=== PATIENT | male | born 1970 | race Caucasian/White ===

== ENCOUNTER 2018-01-13 14:54 | Inpatient (IN) | payer OTHER, SELFPAY ==
[~2018-01-13 14:54] MED LIST: Glycopyrrolate 0.2 MG/ML 5 ML SYRINGE ONE; Ketorolac Tromethamine 30 MG/ML VIAL ONE; Lidocaine 1% PF 5 ML VIAL ONE; Ondansetron HCl/PF 4 MG/2 ML Vial ONE; Propofol 200 MG/20 ML VIAL ONE
[2018-01-13] MEDS ORDERED: Ketorolac Tromethamine 30 MG/ML VIAL ONE (15:24)
--- NOTE | 2018-01-13 16:09 | RAD ---
RIGHT KNEE FOUR VIEWS: History: Fall. Right knee injury. FINDINGS: Joint spaces are preserved. No acute fracture, dislocation, or fluid distention in the joint capsule are apparent. IMPRESSION: No acute osseous abnormalities are demonstrated. POS: [facility]
--- NOTE | 2018-01-13 16:10 | RAD ---
RIGHT HIP TWO VIEWS: History: Fall, right leg injury. FINDINGS: Comminuted oblique fracture of the right femoral neck is present with mild impaction and varus angula tion. Small linear avulsion fragment lies just inferior to the femoral head. There are mild degenerat jagruti changes of the right hip. Remainder of the femur is intact. IMPRESSION: Right hip fracture. POS: [facility]
--- NOTE | 2018-01-13 16:12 | RAD ---
RIGHT HIP TWO VIEWS: History: Fall. Right hip injury. FINDINGS: Comminuted impacted fracture of the right femoral neck is present with mild varus angulation. Small l inear ossific fragment lies just inferior to the femoral head. There are mild degenerative changes of the right hip. IMPRESSION: Right hip fracture. POS: [facility]
--- NOTE | 2018-01-13 16:13 | RAD ---
AP PELVIS ONE VIEW: History: Fall. Pelvic injury. FINDINGS: Impacted angulated right femoral neck fracture is apparent. There are mild osteoarthritic changes of each hip. Sacral ala and pelvic rings are intact. Phleboliths overlie the pelvis. IMPRESSION: Right hip fracture. POS: [facility]
--- NOTE | 2018-01-13 16:13 | RAD ---
LUMBAR SPINE THREE VIEWS: History: Fall. Back injury. FINDINGS: There are five lumbar type vertebrae. Pedicles are intact. Vertebral body height and alignment are ma intained. There is osteophytosis throughout the lower facets. Overall densities over the right upper quadrant have the appearance of bowel content. IMPRESSION: No acute osseous abnormalities of the lumbar spine are demonstrated. POS: [facility]
[2018-01-13] MEDS ORDERED: Dextrose 5% in Water 1,000 ML IV PRN (18:29)
[2018-01-13] MEDS ORDERED: Dextrose 50% Abboject 50 ML SYRINGE SLOW IVP PRN (18:29)
[2018-01-13] MEDS ORDERED: Ondansetron ODT 4 MG TAB PO PRN (18:29)
[2018-01-13 18:37] LABS: #Basophils 0.1 thou/uL (0.0-0.2); #Eosinphils 0.2 thou/uL (0.0-0.7); #Lymphocytes 2.1 thou/uL (1.20-3.40); #Neutrophils 13.2 thou/uL (1.40-6.50); %Basophils 0.4 % (0.0-1.0); %Eosinophils 0.9 % (0.0-10.0); %Lymphocytes 12.8 % (21.0-51.0); %Monocytes 6.1 % (0.0-10.0); %Neutrophils 79.9 % (42.0-75.0); Hemoglobin 15.7 g/dL (14.0-18.0); Mean Corpuscular HGB CONC 34.3 g/dL (32.0-36.0); Mean Corpuscular Hemoglobin 32.2 pg (27.0-31.0); Mean Corpuscular Volume 93.9 fl (80.0-94.0); Mean Platelet Volume 6.4 fL (7.4-10.4); Platelet Count 196 thou/uL (130-400); RBC Distribution Width 11.3 % (11.5-14.5); Red Blood Cell (RBC) Count 4.88 mill/uL (4.70-6.10); White Blood Cell (WBC) Count 16.5 thou/uL (4.8-10.8)
[2018-01-13 18:59] LABS: ALT (SGPT) 25 U/L (8-55); AST (SGOT) 25 U/L (5-34); Albumin 4.1 g/dL (3.5-5.0); Alkaline Phosphatase 94 U/L (40-150); Anion Gap 13 mmol/L (10-20); BUN (Urea Nitrogen) 11 mg/dL (8.9-20.6); Bilirubin, Total 0.4 mg/dL (0.2-1.2); Calc. Creatinine Clearance 0 mL/min (70-130); Calcium 9.2 mg/dL (7.8-10.44); Carbon Dioxide 24 mmol/L (22-29); Chloride 107 mmol/L (98-107); Estimated GFR-MDRD 78; Globulin 2.8 g/dL (2.4-3.5); Glucose 97 mg/dL (70-105); Potassium 3.9 mmol/L (3.5-5.1); Protein, Total 6.9 g/dL (6.0-8.3); Sodium 140 mmol/L (136-145)
--- NOTE | 2018-01-13 19:41 | HP ---
DATE OF ADMISSION: 01/13/2018 ADMITTING PHYSICIAN: Dr. Fernando. CONSULTING PHYSICIAN: Dr. Jaden Varghese. CHIEF COMPLAINT: Evaluation of right hip pain status post fall from height of 4 feet. 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 He denies hitting his head. He denies loss of consciousness. He d oes report that after he landed, part of the lift struck him on the lower back. He denies any other injury. He denies headache, chest pain, shortness of breath, dizziness, neck pain, abdominal pain or any other pain. The pain in his right hip is 4/10, but 10/10 with movement. The pain is constant a nd relieved by nothing. It does not radiate. He describes the pain as dull and aching. PAST MEDICAL HISTORY: The patient reports past medical history of gastroesophageal reflux disease. He also reports a history of esophageal dysmotility, possibly achalasia. PAST SURGICAL HISTORY: The patient reports having an anal fissure repair at [facility] 2 years a go. He has also had an upper endoscopy approximately 3 years ago with an ablation. The patient also reports having a tonsillectomy with a sinus reconstruction 6 to 7 years ago. ALLERGIES: The patient reports one episode of reaction to CODEINE (itching). FAMILY HISTORY: Mother has diabetes mellitus. Father has history significant for hyperthyroidism an d hyperlipidemia. SOCIAL HISTORY: The patient dips 1 can of snuff a week for 30 years. The patient does not smoke. P atient seldom drinks alcohol, approximately one beer per month. The patient does not do other drugs. REVIEW OF SYSTEMS: Ten-point review of systems is negative except as otherwise stated in the HPI. PHYSICAL EXAMINATION: VITAL SIGNS: BP 136/77, pulse 90, respirations 16, O2 sat 95% on room air. GENERAL: Adult male who appears his stated age in no acute distress. HEENT: Head is normocephalic and atraumatic. Ears atraumatic. Nose: Nares patent, no blood. Mout h, his oropharynx is pink and moist. His dentition is fully intact. His Mallampati score is 4. NECK: Supple, with no tenderness or tracheal deviation. RESPIRATORY: His lungs are clear to auscultation bilaterally with normal effort. CARDIOVASCULAR: He has a regular rate and rhythm, normal S1 and S2. No murmurs, gallops or rubs. Distal pulses are 2+ bilaterally and radial pulses also 2+ bilaterally. ABDOMEN: Soft, nontender, nondistended. He has somewhat hypoactive bowel sounds. No masses. EXTREMITIES: He is neurovascularly intact x4. His right leg is shortened and externally rotated. H e has no ecchymosis in his skin, full intact. NEUROLOGIC: His Josh coma score is 15. He is alert and oriented x4. His cranial nerves II-XII a re fully intact. He has no focal deficits. PSYCHIATRIC: His mood and affect are normal. LABORATORY DATA: Chemistry: Sodium 140, potassium 3.9, chloride 107, bicarbonate 24, BUN 11, creati nine 1.03, glucose 97. Hematology: WBC 16.5, hemoglobin 15.7, hematocrit 45.8, platelets 196. RADIOGRAPHIC FINDINGS: Pelvis x-ray. Impression: Right hip fracture. Lumbar spine 2 or 3 view. I mpression: No acute osseous abnormalities of the lumbar spine are demonstrated. Right hip 2 or 3 vi ew, impression, right hip fracture. Right femur, 2-view, impression, right hip fracture. Right knee , 4-view, impression, no acute osseous abnormalities are demonstrated. ASSESSMENT AND PLAN: 1. Status post fall from height. 2. Comminuted right femoral neck fracture. 3. Acute traumatic pain. PLAN: 1. The plan will be for ortho surgery [facility] to the risk of avasc ular necrosis with this type of injury. The patient has been n.p.o. since approximately noon today. 2. We will optimize his pain control and order PT and OT evaluations postop. This patient was discussed with Dr. Fernando who is deputy coroner [facility], who agrees with this assessment a nd plan.
[2018-01-13] MEDS ORDERED: CEFAZOLIN/Water 2 GM/20 ML SYRINGE SLOW IVP SCH (20:15)
--- NOTE | 2018-01-13 21:07 | CON ---
DATE OF CONSULTATION: 01/13/2018 CHIEF COMPLAINT: Right hip pain. HISTORY OF PRESENT ILLNESS: Mr. Miller is a 47-year-old male who fell 4 feet from a skid concrete bucket [employer] [facility]. He landed on his right side on a concrete floor. He had immediate pain in the hip. He was unable to ambulate. He was taken to the emergency department by EMS. He has been found to have a displaced right femoral neck fracture. Orthopedics was consulted. The patient has been given morp haris, but does complain of pain in the hip. He feels that he is unable to move the leg whatsoever. His family is at the bedside. No previous fractures. He has been healthy recently. 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 PAST MEDICAL HISTORY: The patient denies any active medical problems. PAST SURGICAL HISTORY: Adenoidectomy, previous colonoscopy and EGD. He has had a previous sinus nena sergio as well. ALLERGIES: No known drug allergies. MEDICATIONS: No active medications. SOCIAL HISTORY: The patient drinks occasional alcohol, no smoking, no drug use. FAMILY MEDICAL HISTORY: Noncontributory. PHYSICAL EXAMINATION: VITAL SIGNS: Stable. He is afebrile. He is normotensive and 90% on room air. GENERAL: He is alert, lying supine in no apparent distress. HEENT: Normocephalic, atraumatic. RESPIRATORY: Breathing comfortably. ABDOMEN: Soft, nontender, nondistended. MUSCULOSKELETAL: The patient's right leg has shortened and externally rotated posture. He has palpa ble dorsalis pedis pulse. Sensation is intact in the dorsal and plantar aspect of the foot. He is a ble to wiggle the toes. He has 2 second capillary refill. IMAGES: X-rays demonstrate a displaced right femoral neck fracture which is basically cervical. The re is no significant extension distally. There is an effusion. IMPRESSION: Displaced right femoral neck fracture in a 47-year-old male. PLAN: At this point, the patient will need operative intervention. I will take him to the operating room for open reduction and fixation of his femoral neck fracture. Our goal is anatomic reduction a nd urgent fixation to hopefully restore blood flow into the femoral head and prevent complications mathias ch as nonunion or avascular necrosis. I have reviewed these with him. It is possible that he would need a total hip arthroplasty in the future if he did not fully improved. He is aware of risks and w ants to proceed. Goal of surgery will be early mobilization as well as pain relief also. He will green ve preoperative antibiotics. He will have pain control and deep venous thrombosis prophylaxis as sammy hermosillo.
[2018-01-13 21:10] VITALS: BMI 28.3
[2018-01-13] MEDS ORDERED: Midazolam HCl 2 mg/2 ml Vial ONE (22:41)
[2018-01-13] MEDS ORDERED: Fentanyl 100 MCG/2 ML VIAL ONE ×2 (22:41)
[2018-01-13] MEDS ORDERED: Ondansetron HCl/PF 4 MG/2 ML Vial IV PRN (22:50)
[2018-01-13] MEDS ORDERED: Milk Of Magnesia 30 ML UDCUP PO PRN (22:50)
[2018-01-13] MEDS ORDERED: traMADol HCl 50 MG TAB PO PRN (22:50)
[2018-01-13] MEDS ORDERED: HYDROcodone/Acetaminophen 10/325 mg Tablet PO PRN (22:50)
[2018-01-13] MEDS ORDERED: Fentanyl 100 MCG/2 ML VIAL SLOW IVP PRN (22:50)
[2018-01-13] MEDS ORDERED: Communication Order-Pharmacy FS SCH (23:00)
[2018-01-13] MEDS ORDERED: HYDROmorphone 0.5 MG/0.5 ML SYRINGE ONE (23:51)
[2018-01-13] MEDS ORDERED: Ketorolac Tromethamine 30 MG/ML VIAL IVP SCH (23:59)
[2018-01-14] MEDS ORDERED: Fentanyl 100 MCG/2 ML VIAL ONE (00:02)
[2018-01-14] MEDS ORDERED: HYDROmorphone 0.5 MG/0.5 ML SYRINGE ONE (00:44)
[2018-01-14] MEDS ORDERED: Ondansetron HCl/PF 4 MG/2 ML Vial IVP PRN (00:46)
[2018-01-14] MEDS ORDERED: HYDROmorphone 2 MG/ML VIAL SLOW IVP PRN (00:46)
[2018-01-14] MEDS ORDERED: Promethazine HCl 25 MG/ML VIAL SLOW IVP PRN (00:46)
[2018-01-14] MEDS ORDERED: Promethazine HCl 25 MG/ML VIAL IM PRN (00:46)
--- NOTE | 2018-01-14 01:27 | OP ---
DATE OF PROCEDURE: 01/13/2018 PROCEDURE: Open reduction internal fixation of right femoral neck fracture. PREOPERATIVE DIAGNOSIS: Displaced right femoral neck fracture. POSTOPERATIVE DIAGNOSIS: Displaced right femoral neck fracture. COMPLICATIONS: None. ESTIMATED BLOOD LOSS: 100 mL. SURGEON: Jaden Varghese M.D. ANESTHESIA: General. IMPLANTS: 1. A [employer] dynamic hip screw size 85 mm with 4-hole plate. 2. A 7.3 mm cannulated screws from [employer]. INDICATIONS: Mr. Miller is a 47-year-old male who fell today. He sustained a fracture of the right femoral neck which was displaced. He was indicated for reduction of the femoral neck fracture in e operating room with fixation to restore anatomic alignment and promote healing. Risks have been re viewed and did include avascular necrosis, nonunion, malunion and others. DESCRIPTION OF PROCEDURE: Mr. Miller was identified in the preoperative holding area. His correct extremity was marked. He was carried to the operating room. He was positioned supine. General anes thesia was induced. A multidisciplinary timeout was performed. The right lower extremity was preppe d and draped in sterile fashion. We began the procedure with longitudinal traction on the limb using the fracture table. We rotated t he foot and pulled traction until we had an anatomic reduction of the femoral neck. Once this was ac complished, we prepped and draped the right lower extremity. We then made an incision over the later al thigh. We dissected down through the subcutaneous tissues to the fascia, which was incised. At t his point, we inserted a guidewire into the center position of the femoral head in the superior aspec t. This was used as a derotational wire. We then placed our second guidewire for DHS in a similar c entered position. At this point, we over drilled our superior guidewire and placed a 7.3 mm cannulat ed screw, which was 70 mm in length. We then overdrilled our DHS wire with our triple reamer. We pl aced an 85 mm screw and a 4-hole side plate. Four screws were placed laterally, affixing the plate t o the bone. We took final x-ray images confirming hardware position. There were no complications. At this point, we continued on with irrigation of the wound and then closed with #1 Vicryl suture, 2- 0 Vicryl suture and lyla were used. A sterile dressing was applied. The patient was taken to the recovery room in good condition.
[2018-01-14] MEDS ORDERED: Famotidine/PF 20 mg/2ml Vial SLOW IVP SCH (02:15)
[2018-01-14] MEDS: Ketorolac Tromethamine 30 MG/ML VIAL IVP SCH ×3 (04:35→14:24)
[2018-01-14] MEDS: CEFAZOLIN/Water 2 GM/20 ML SYRINGE SLOW IVP SCH ×2 (04:45→12:21)
[2018-01-14 04:56] LABS: #Eosinphils 0.1 thou/uL (0.0-0.7); #Monocytes 1.3 thou/uL (0.11-0.59); #Neutrophils 12.6 thou/uL (1.40-6.50); %Basophils 0.1 % (0.0-1.0); %Eosinophils 0.5 % (0.0-10.0); %Lymphocytes 12.7 % (21.0-51.0); %Monocytes 8.3 % (0.0-10.0); %Neutrophils 78.4 % (42.0-75.0); Hemoglobin 14.5 g/dL (14.0-18.0); Mean Corpuscular HGB CONC 34.4 g/dL (32.0-36.0); Mean Corpuscular Hemoglobin 32.8 pg (27.0-31.0); Mean Corpuscular Volume 95.2 fl (80.0-94.0); Mean Platelet Volume 6.9 fL (7.4-10.4); Platelet Count 197 thou/uL (130-400); RBC Distribution Width 11.3 % (11.5-14.5); Red Blood Cell (RBC) Count 4.44 mill/uL (4.70-6.10)
[2018-01-14 05:10] LABS: Anion Gap 12 mmol/L (10-20); BUN (Urea Nitrogen) 14 mg/dL (8.9-20.6); Calc. Creatinine Clearance 100 mL/min (70-130); Calcium 8.9 mg/dL (7.8-10.44); Carbon Dioxide 27 mmol/L (22-29); Chloride 106 mmol/L (98-107); Estimated GFR-MDRD 79; Glucose 111 mg/dL (70-105); Potassium 4.1 mmol/L (3.5-5.1); Sodium 141 mmol/L (136-145)
--- NOTE | 2018-01-14 08:03 | RAD ---
INTRAOPERATIVE FLUOROSCOPY: HISTORY: Right hip fracture. COMPARISON: 01/13/18. FINDINGS: Intraprocedural fluoroscopy provided for Dr. Varghese. Two fluorosocpic images demonstrate a gamma nail as well as a single screw traversing the previously described fracture. Lucency is still presen t. Alignment is near-anatomic. IMPRESSION: Fluoroscopy as above. POS: [facility]
[2018-01-14] MEDS ORDERED: Acetaminophen 500 MG TAB PO PRN (09:04)
[2018-01-14] MEDS: traMADol HCl 50 MG TAB PO SCH ×3 (12:19→21:38)
[2018-01-14] MEDS: Acetaminophen 500 MG TAB PO SCH ×3 (12:20→21:39)
--- NOTE | 2018-01-14 14:05 | PRG ---
DATE OF SERVICE: 01/14/2018 ATTENDING PHYSICIAN: Dr. Remi Frost SUBJECTIVE: The patient is a 47-year-old male who sustained a 4-5 foot fall yesterday and presented to the ER here at [facility]. He was taken to the OR last night by Dr. Jaden Varghese for o pen reduction internal fixation of a right femoral neck fracture. On exam this morning, he voices no complaints, says his pain is well controlled and is anxious to get out of bed and start ambulating. OBJECTIVE: VITAL SIGNS: BP 113/73, pulse 94, temperature 99.2, respirations 18, O2 sat 92% on 1 liter nasal can nula. GENERAL: Adult male, appears his stated age, in no acute distress. HEENT: Normocephalic, atraumatic. LUNGS: His lungs are clear to auscultation bilaterally with normal effort. CARDIOVASCULAR: He has a regular rate and rhythm, normal S1 and S2. Distal pulses are 2+ bilaterall y. ABDOMEN: Soft, flat and nontender, nondistended. Normal bowel sounds. EXTREMITIES: He is neurovascularly intact x4. He has no dependent edema. His right leg over the mathias rgical site is dressed. The dressing appears clean and dry. NEUROLOGICAL: His GCS is 15 this morning. He has no focal deficits. LABORATORY DATA: He has no significant laboratory findings this morning. RADIOGRAPHIC FINDINGS: He has no images to review today. ASSESSMENT: 1. Status post fall from 4-5 foot height. 2. Right femoral neck fracture, status post open reduction internal fixation. 3. Acute traumatic pain. PLAN: 1. We have discontinued his Mobile this morning and started him on Ultram, ibuprofen and Tylenol. We will continue to monitor his pain and optimize his pain control prior to discharge. 2. PT and OT evaluation today. 3. The patient has agreed to outpatient physical therapy and will discharge home tomorrow once his p ain control has been optimized. This patient was seen and examined along with Dr. Remi Frost on rounds this morning who agrees wit h the assessment and plan.
[2018-01-14] MEDS ORDERED: Enoxaparin Sodium 30 MG/0.3 ML SYRINGE SC SCH (21:00)
[2018-01-14] MEDS: Ibuprofen 800 MG TAB PO SCH (21:39)
--- NOTE | 2018-01-15 00:15 | PRG ---
DATE OF SERVICE: 01/14/2018 SUBJECTIVE: This is a 47-year-old gentleman, status post fall, postop day #1 status post hip fractur e repair. Upon my evaluation, the patient is resting in bed and vocalized no complaint. He states h is pain has been controlled. He worked with physical therapy earlier today. OBJECTIVE: VITAL SIGNS: Reviewed and stable. The patient is afebrile. GENERAL: Resting in bed, in no acute distress. RESPIRATORY: Breathing is nonlabored. ASSESSMENT AND PLAN: As documented in daily progress note. Continue care as ordered. Continue to m onitor.
[2018-01-15] MEDS: Acetaminophen 500 MG TAB PO SCH ×2 (03:10→08:26)
[2018-01-15] MEDS: traMADol HCl 50 MG TAB PO SCH ×2 (03:11→08:26)
[2018-01-15] MEDS: Ibuprofen 800 MG TAB PO SCH (06:27)
[2018-01-15] MEDS ORDERED: HYDROcodone/Acetaminophen 10/325 mg Tablet PO PRN ×2 (07:49)
--- NOTE | 2018-01-15 08:22 | DIS ---
DATE OF ADMISSION: 01/13/2018 DATE OF DISCHARGE: 01/15/2018 PREOPERATIVE DIAGNOSIS: Displaced right femoral neck fracture. POSTOPERATIVE DIAGNOSIS: Displaced right femoral neck fracture. PROCEDURE: The patient underwent open reduction and internal fixation of right femoral neck fracture . HOSPITAL COURSE: Postop stay was unremarkable. The patient was admitted to [place] [id number] where he worked with staff, physical therapy, occupational therapy, and progressed quite well. By postoperative day #2, he was ready to discharge home with family. DISCHARGE CONDITION: Good/stable. DISPOSITION: Home with family. FOLLOWUP: Follow up would be in 10-14 days or sooner if there are problems or concerns. DISCHARGE MEDICATIONS: Given with usage instructions. This is Deejay Lozada PA-C, dictating for Dr. Jaden Varghese.
[2018-01-15 08:26] VITALS: BP 117/80; TEMP 97.7
[2018-01-15] MEDS ORDERED: Aspirin 81 mg Enteric Coated Tablet PO SCH (09:00)
[2018-01-15] MEDS ORDERED: Ibuprofen 800 MG TAB PO PRN (10:00)
[2018-01-15] MEDS ORDERED: Famotidine/PF 20 mg/2ml Vial SLOW IVP SCH (21:00)
== END 2018-01-15 10:41 | disposition home or self-care (01) | DRG 482 ==
LOC: ERS 14:54 → SURG A 20:40
PROVIDERS: ADMIT Surgery; ATTEND Surgery
PROC: 0QS604Z Reposition Right Upper Femur with Internal Fixation Device, Open Approach (ICD-10-PCS; principal; 2018-01-14)
DX: S72.001A Fracture of unspecified part of neck of right femur, initial encounter for closed fracture (principal); K21.9 Gastro-esophageal reflux disease without esophagitis; W31.89XA Contact with other specified machinery, initial encounter
CPT/HCPCS: 36415; 72100; 72170; 76001; 80048; 80053; 85025; 96374; 96375; 96376; C1713; C1769; G0390; G8978-GP-CK; G8979-GP-CJ; G8987-GO-CK; G8988-GO-CK; G8989-GO-CK; J1170; J1650; J1885; J2001; J2250; J2270; J2405; J2704; J3010; S0028

== ENCOUNTER 2018-08-28 08:36 | Outpatient (CLI) | payer OTHER ==
--- NOTE | 2018-08-28 10:35 | CT ---
CT OF THE RIGHT HIP: DATE: 08/28/18. PROVIDED CLINICAL HISTORY: Nonhealing fracture. FINDINGS: Comparison is made with the radiographs dated 01/13/18. Interval placement of lateral side plate and dynamic hip screw along with cannulated partially threaded lag screw traversing the previously descri bed femoral neck fracture. Alignment is near anatomic. There is osseous union involving the majorit y of the central aspects of the fracture plane. There is persistent fracture lucency with peripheral bridging callus formation seen along the medial aspect of the femoral neck. There is no evidence fo r hardware loosening or migration. The density of the femoral head is normal, without Ct evidence fo r osteonecrosis. The amount of fluid within the right hip joint appears physiologic. The visualized osseous structure s demonstrate an otherwise unremarkable CT appearance. The visualized regional soft tissues demonstr ate an unremarkable unenhanced CT appearance with the exception of vascular calcification. IMPRESSION: Predominantly united internally fixated right femoral neck fracture without evidence for osteonecrosi s involving the femoral head or hardware complication. POS: [facility]
--- NOTE | 2018-08-28 15:05 | NM ---
WHOLE BODY BONE SCAN WITH TRIPLE PHASE IMAGING THROUGH THE PELVIS AND HIPS: HISTORY: Unspecified fracture of right femur, nonhealing fracture, right hip pain. RADIOPHARMACEUTICAL: 31.7 mCi [id number] administered intravenously. FINDINGS: Correlation is made with the CT scan of the right hip from the same date. There is a focal area of increased uptake in the medial aspect of the right proximal femur in the reg ion of incomplete fusion noted on the CT scan. This is seen on the delayed images. No increased blo od flow of blood pooling is identified. There is a focus of increased uptake in the left posterior 10th rib consistent with fracture. Tracer excretion through the kidneys is within normal limits. A small focus of increased uptake in the rig ht anterolateral 5th rib is also appears to be sequelae of trauma/fracture. Mild increased uptake in the shoulders, elbows, wrists, knees, and ankles and feet are consistent with degenerative changes. IMPRESSION: No evidence of infection or loosening in the right hip. POS: [facility]
== END 2018-08-28 08:37 | disposition home or self-care (01) ==
LOC: NM 08:36
DX: S72.001D Fracture of unspecified part of neck of right femur, subsequent encounter for closed fracture with routine healing (principal)
CPT/HCPCS: 78315; A9503

== ENCOUNTER 2018-10-13 14:41 | Outpatient (CLI) | payer OTHER ==
[~2018-10-13 14:41] MED LIST changes: +Gadobenate Dimeglumine 529 MG/1 ML (20ML VIAL) ONE; -Glycopyrrolate 0.2 MG/ML 5 ML SYRINGE ONE; -Ketorolac Tromethamine 30 MG/ML VIAL ONE; -Lidocaine 1% PF 5 ML VIAL ONE; -Ondansetron HCl/PF 4 MG/2 ML Vial ONE; -Propofol 200 MG/20 ML VIAL ONE
--- NOTE | 2018-10-13 18:54 | MRI ---
MRI LUMBAR SPINE WITH AND WITHOUT CONTRAST: HISTORY: Lumbar radiculopathy, M54.16. TECHNIQUE: Multiplanar, multisequence MR images of the lumbar spine with and without contrast obtained. FINDINGS: T12-L1: Unremarkable. L1-L2: Unremarkable. L2-L3: Minimal disk desiccation is seen. There is a subtle broad-based disk bulge. The central can al and neural foramen are patent. L3-L4: There is minimal facet hypertrophy. The central canal and neural foramen are patent. L4-L5: There is a left L4-L5 lateral recess small focal disk protrusion, minimally but not significa ntly compressing the left L4-L5 lateral recess. The neural foramen are patent. L5-S1: Disk desiccation is seen. There is minimal facet hypertrophy. The central canal and neural foramen are patent. IMPRESSION: Left L4-L5 lateral recess focal disk protrusion. POS: [facility]
--- NOTE | 2018-10-14 09:32 | MRI ---
MRI OF THE PELVIS WITH AND WITHOUT CONTRAST: Indication: Lumbar radiculopathy status post fall at work with right sided rib pain, lumbar spine moustapha n, right hip pain. Contrast: 60 cc of MultiHance Comparison: Right femur radiographs dated 01-14-18. FINDINGS: Susceptibility artifact from patient's hip screws and slide plate limits image detail of the proximal right femur and right hip. No large gross paralabral cyst is identified. No definite joint effusion is noted. No ileus, or intertrochanteric bursitis is evident. No overt muscular atrophy is noted. No lymphadenopathy is demonstrated. No definite area of abnormal enhancement is present. No acute fractu re is grossly evident. IMPRESSION: No acute abnormality. POS: [facility]
== END 2018-10-13 14:42 | disposition home or self-care (01) ==
LOC: SCSMRI 14:41
PROVIDERS: ATTEND Physician Assistant Medical
DX: M51.16 Intervertebral disc disorders with radiculopathy, lumbar region (principal)
CPT/HCPCS: 72158; 72197; A9579

== ENCOUNTER 2023-11-18 09:10 | Outpatient (CLI) | payer OTHER ==
[2023-11-18 09:59] LABS: #Eosinphils 0.2 10x3/uL (0.0-0.5); #Monocytes 0.4 10x3/uL (0.0-1.1); #Neutrophils 3.6 10x3/uL (1.5-8.4); %Basophils 0.6 % (0.0-2.0); %Eosinophils 2.3 % (0.0-6.0); %Lymphocytes 34.7 % (18.0-47.0); %Neutrophils 56.1 % (40.0-75.0); Hematocrit 46.4 % (38.8-50.0); Hemoglobin 16.3 g/dL (13.5-17.5); Mean Corpuscular HGB CONC 35.1 g/dL (32.0-36.0); Mean Corpuscular Hemoglobin 32.2 pg (27.0-33.0); Mean Corpuscular Volume 91.7 fl (81.2-95.1); Mean Platelet Volume 9.5 fl (7.4-10.4); Platelet Count 183 10x3/uL (150-450); RBC Distribution Width 11.8 % (11.5-14.5); Red Blood Cell (RBC) Count 5.06 10x6/uL (4.32-5.72); White Blood Cell (WBC) Count 6.5 10x3/uL (3.5-10.5)
[2023-11-18 10:09] LABS: Anion Gap 13 mmol/L (10-20); BUN (Urea Nitrogen) 14 mg/dL (8.4-25.7); Calc. Creatinine Clearance 0 mL/min (70-130); Calcium 9.4 mg/dL (7.8-10.44); Carbon Dioxide 26 mmol/L (22-29); Chloride 107 mmol/L (98-107); Estimated GFR 77; Glucose 105 mg/dL (70-105); Potassium 4.6 mmol/L (3.5-5.1); Sodium 141 mmol/L (136-145)
== END 2023-11-18 09:11 | disposition home or self-care (01) ==
LOC: LABBT 09:10
PROVIDERS: ATTEND Surgery
DX: Z01.812 Encounter for preprocedural laboratory examination (principal); K40.90 Unilateral inguinal hernia, without obstruction or gangrene, not specified as recurrent
CPT/HCPCS: 80048; 85025

== ENCOUNTER 2023-11-21 06:16 | Day surgery (SDC) | payer OTHER ==
[2023-11-18 09:40] VITALS: BMI 27.7
[2023-11-21] MEDS ORDERED: Bupivacaine 0.25% HCL 30 ML VIAL ONE (08:12)
[2023-11-21] MEDS ORDERED: EPINEPHrine 1 MG/ML VIAL ONE (08:12)
[2023-11-21] MEDS ORDERED: Lidocaine 1% PF 5 ML VIAL ONE (08:25)
[2023-11-21] MEDS ORDERED: fentaNYL PF 100 MCG/2 ML SYRINGE ONE (08:25)
[2023-11-21] MEDS ORDERED: PROPOFOL 0 ML ONE (08:25)
[2023-11-21] MEDS ORDERED: Ondansetron PF 4 MG/2 ML Vial ONE (08:25)
[2023-11-21] MEDS ORDERED: Dexamethasone 20 MG/5 ML VIAL ONE (08:25)
[2023-11-21] MEDS ORDERED: Midazolam HCl 2 mg/2 ml Vial ONE (08:48)
[2023-11-21] MEDS ORDERED: Sodium Chloride 0.9% 100 ML ONE (09:01)
[2023-11-21] MEDS ORDERED: CEFAZOLIN 2 GM VIAL ONE (09:01)
[2023-11-21] MEDS ORDERED: Lidocaine 2% 6 ML (Jelly) SYR ONE (09:38)
[2023-11-21] MEDS ORDERED: Ketorolac Tromethamine 30 MG/ML VIAL ONE (10:17)
[2023-11-21] MEDS ORDERED: NEOSTIGMINE 3 MG/3 ML SYR 3 MG/3 ML SYRINGE ONE (10:20)
[2023-11-21] MEDS ORDERED: Glycopyrrolate 0.2 MG/ML 5 ML SYRINGE ONE (10:20)
[2023-11-21] MEDS ORDERED: PROPOFOL 20 ML ONE (10:24)
[2023-11-21] MEDS ORDERED: fentaNYL 50 mcg/mL 1 mL Vial ONE ×3 (10:45→11:09)
[2023-11-21] MEDS ORDERED: HYDROcodone/Acetaminophen 5/325 mg Tablet ONE (11:32)
== END 2023-11-21 12:50 | disposition home or self-care (01) ==
LOC: SDC 06:16
PROVIDERS: ATTEND Surgery
PROC: 0YQA4ZZ Repair Bilateral Inguinal Region, Percutaneous Endoscopic Approach (ICD-10-PCS; principal; 2023-11-21)
DX: K40.90 Unilateral inguinal hernia, without obstruction or gangrene, not specified as recurrent (principal); K64.9 Unspecified hemorrhoids; F10.90 Alcohol use, unspecified, uncomplicated; Z90.89 Acquired absence of other organs; Z79.899 Other long term (current) drug therapy
CPT/HCPCS: A4314; C1781; J0171; J1100; J1885; J2250; J2405; J2704; J3010; J3490; S0020